=== PATIENT | female | born 1985 | race Two or more races ===

== ENCOUNTER 2023-12-22 12:59 | Inpatient (IN) | payer OTHER ==
[~2023-12-22] VITALS: Ht 165.1 cm; Wt 102.5 kg
[2023-12-22] MEDS ORDERED: LOSARTAN POTASS25 MG PO (13:52)
[2023-12-22] MEDS ORDERED: SYNTHROID50 MCG PO (13:52)
[2023-12-22] MEDS ORDERED: CLONAZEPAM1 MG PO (13:53)
[2023-12-22] MEDS ORDERED: 0.9 % SODIUM CHLORIDE 500 ML IV ONE (15:45)
[2023-12-22 16:18] LABS: HEMATOCRIT 24.3 % (36.0-45.00); MEAN CELL VOLUME 83.8 fL (80.00-100.00); PLATELET COUNT 384 K/uL (150-450); RED CELL DISTRIBUTION WIDTH 15.4 % (11.5-14.5)
[2023-12-22 16:22] LABS: MEAN CORPUSCULAR HEMOGLOBIN 27.5 pg (27.00-32.0)
[2023-12-22 16:33] LABS: PH,URINE 7.5 (5.0-8.0); URINE APPEARANCE Clear; URINE BILIRRUBIN Negative (NEGATIVE); URINE BLOOD Large; URINE COLOR Orange; URINE GLUCOSE Negative (NEGATIVE); URINE LEUKOCYTE Negative; URINE NITRATE Negative; URINE PROTEIN Negative (NEGATIVE); URINE UROBILINOGEN 0.2 E.U./dl
[2023-12-22 16:37] LABS: URINE BACTERIA 35.2 uL (0.0-1933); URINE RBC 2171.3 uL (0.0-20.8); URINE WBC 5.5 uL (0.0-23.2)
[2023-12-22 16:38] LABS: CREATININE SERUM 0.82 mg/dL (0.55-1.02); GFR 78.02; POTASSIUM 3.8 mEq/L (3.5-5.1)
[2023-12-22 16:53] LABS: INR 1.04; PARTIAL THROMBOPLASTIN TIME 26.5 SECONDS (22.0-34.0); PROTHROMBIN TIME 10.9 SECONDS (9.0-11.5)
[2023-12-22] MEDS ORDERED: LOSARTAN POTASSIUM 25 MG TABLET PO SCH (17:40)
[2023-12-22] MEDS ORDERED: ESTROGENS, CONJUGATED 25 MG in DEXTROSE 5 % IN WATER 50 ML IV SCH (17:42)
[2023-12-22] MEDS ORDERED: FUROsemide 20 MG/2 ML VIAL IV SCH (17:45)
[2023-12-23] MEDS ORDERED: LEVOTHYROXINE SODIUM 50 MCG TABLET PO SCH (06:00)
[2023-12-23 17:01] LABS: HEMOGLOBIN 10.6 g/dL (12.0-15.00); MEAN CELL VOLUME 83.9 fL (80.00-100.00); MEAN CORPUSCULAR HEMOGLOBIN 27.8 pg (27.00-32.0); MEAN CORPUSCULAR HGB CONC 33.2 g/dl (32.0-36.0); PLATELET COUNT 391 K/uL (150-450); RED BLOOD COUNT 3.81 M/uL (4.00-6.00); RED CELL DISTRIBUTION WIDTH 15.4 % (11.5-14.5)
[2023-12-24] MEDS ORDERED: MAXFE CAPLET1 EAC1 PO (13:42)
[2023-12-24] MEDS ORDERED: PROMETRIUM200 MG PO (13:43)
== END 2023-12-24 15:13 | disposition home or self-care (01) | DRG 761 ==
LOC: ER 13:00 → OB/GYN 18:48 → SEC-K 18:48 → OB/GYN 19:35
PROVIDERS: Nurse Practitioner Family; ADMIT Obstetrics & Gynecology; ATTEND Obstetrics & Gynecology
PROC: BU4CZZZ Ultrasonography of Uterus and Ovaries (ICD-10-PCS; principal; 2023-12-22)
PROC: 30233N1 Transfusion of Nonautologous Red Blood Cells into Peripheral Vein, Percutaneous Approach (ICD-10-PCS; 2023-12-23)
DX: N93.9 Abnormal uterine and vaginal bleeding, unspecified (principal); D64.9 Anemia, unspecified; Z20.822 Contact with and (suspected) exposure to COVID-19

== ENCOUNTER 2023-12-25 14:50 | Emergency (ER) | payer OTHER ==
[~2023-12-25] VITALS: Ht 165.1 cm; Wt 102.5 kg
[~2023-12-25 14:50] MED LIST: CLONAZEPAM1 MG PO; LOSARTAN POTASS25 MG PO; MAXFE CAPLET1 EAC1 PO; PROMETRIUM200 MG PO; SYNTHROID50 MCG PO
[2023-12-25 16:49] LABS: HEMATOCRIT 29.9 % (36.0-45.00); HEMOGLOBIN 9.8 g/dL (12.0-15.00); MEAN CELL VOLUME 85.1 fL (80.00-100.00); MEAN CORPUSCULAR HEMOGLOBIN 27.8 pg (27.00-32.0); MEAN CORPUSCULAR HGB CONC 32.7 g/dl (32.0-36.0); PLATELET COUNT 403 K/uL (150-450); RED BLOOD COUNT 3.51 M/uL (4.00-6.00)
[2023-12-25 17:07] LABS: URINE APPEARANCE Cloudy; URINE BILIRRUBIN Negative (NEGATIVE); URINE BLOOD Large; URINE COLOR Yellow; URINE GLUCOSE Negative (NEGATIVE); URINE LEUKOCYTE Moderate; URINE NITRATE Negative; URINE PROTEIN 30 (NEGATIVE)
[2023-12-25 17:11] LABS: URINE BACTERIA 2431.7 uL (0.0-1933); URINE EPITHELIAL CELLS 40.8 uL (0.0-38.8); URINE WBC 130.3 uL (0.0-23.2)
[2023-12-25 17:17] LABS: ALBUMIN 3.4 gm/dL (3.4-5.0); ALKALINE PHOSPHATASE 48 U/L (50-136); ALT/SGPT 25 U/L (12-78); ANION GAP 8 (10.0-20.0); AST/SGOT 9 U/L (15-37); BILIRUBIN TOTAL 0.25 mg/dL (0.3-1.2); BLOOD UREA NITROGEN 10 mg/dL (7-18); BUN CREA RATIO 12 (7.0-25.0); CALCIUM 8.9 mg/dL (8.5-10.1); CARBON DIOXIDE 29 mEq/L (21-32); CHLORIDE 106 mmol/L (98-107); CREATININE SERUM 0.81 mg/dL (0.55-1.02); GFR 79.13; GLUCOSE FASTING 104 mg/dL (65-100); INR 0.98; OSMOLALITY SERUM 277 MOSM/KG (275-295); PARTIAL THROMBOPLASTIN TIME 23.6 SECONDS (22.0-34.0); POTASSIUM 3.71 mEq/L (3.5-5.1); PROTHROMBIN TIME 10.3 SECONDS (9.0-11.5); SODIUM 139 mmol/L (136-145); TOTAL PROTEIN 7.4 gm/dL (6.4-8.2)
[2023-12-25 17:18] LABS: HCG QUANTITATIVE < 1 mUI/mL (1-3)
== END 2023-12-25 18:06 | disposition home or self-care (01) ==
LOC: ER 14:50
PROVIDERS: General Practice
DX: N93.8 Other specified abnormal uterine and vaginal bleeding (principal); J45.909 Unspecified asthma, uncomplicated; I10 Essential (primary) hypertension; E03.9 Hypothyroidism, unspecified; K50.90 Crohn's disease, unspecified, without complications; Z88.8 Allergy status to other drugs, medicaments and biological substances; Z91.013 Allergy to seafood

== ENCOUNTER 2024-01-04 08:10 | Day surgery (SDC) | payer OTHER ==
[2024-01-02 10:12] LABS: URINE APPEARANCE Turbid; URINE BILIRRUBIN Small (NEGATIVE); URINE BLOOD Moderate; URINE COLOR Red; URINE GLUCOSE Negative (NEGATIVE); URINE LEUKOCYTE Moderate; URINE NITRATE Positive; URINE UROBILINOGEN 0.2 E.U./dl
[2024-01-02 10:15] LABS: URINE BACTERIA 1242.3 uL (0.0-1933); URINE EPITHELIAL CELLS 38.1 uL (0.0-38.8); URINE WBC 444.8 uL (0.0-23.2)
[2024-01-02 10:16] LABS: HEMATOCRIT 30.2 % (36.0-45.00); MEAN CELL VOLUME 85.2 fL (80.00-100.00); MEAN CORPUSCULAR HEMOGLOBIN 28.2 pg (27.00-32.0); MEAN CORPUSCULAR HGB CONC 33.1 g/dl (32.0-36.0); PLATELET COUNT 375 K/uL (150-450); RED BLOOD COUNT 3.55 M/uL (4.00-6.00); RED CELL DISTRIBUTION WIDTH 15.9 % (11.5-14.5)
[2024-01-02 10:32] LABS: URINE PROTEIN 100 (NEGATIVE); URINE RBC > 10558.9 uL (0.0-20.8)
[2024-01-02 10:47] LABS: INR 0.99; PARTIAL THROMBOPLASTIN TIME 25.9 SECONDS (22.0-34.0); PROTHROMBIN TIME 10.4 SECONDS (9.0-11.5)
[2024-01-02 10:50] LABS: ALBUMIN 3.6 gm/dL (3.4-5.0); BILIRUBIN TOTAL 0.34 mg/dL (0.3-1.2); CALCIUM 8.8 mg/dL (8.5-10.1); CREATININE SERUM 0.91 mg/dL (0.55-1.02); GFR 69.18; GLOBULINA 3.9 G/DL (2.4-3.5); POTASSIUM 3.96 mEq/L (3.5-5.1); TOTAL PROTEIN 7.5 gm/dL (6.4-8.2); TSH 1.91 uIU/mL (0.358-3.74)
[~2024-01-04] VITALS: Ht 165.1 cm; Wt 103.4 kg
[2024-01-04] MEDS ORDERED: POVIDONE-IODINE 118 ML BOTT TOP ONE (18:57)
[2024-01-04] MEDS ORDERED: POVIDONE-IODINE 118 ML BOTT TOP SCH (20:00)
== END 2024-01-05 03:05 | disposition home or self-care (01) ==
LOC: CIR.AMB 08:10
PROVIDERS: ATTEND Student in an Organized Health Care Education/Training Program
DX: N85.00 Endometrial hyperplasia, unspecified (principal); Z91.013 Allergy to seafood; Z88.8 Allergy status to other drugs, medicaments and biological substances; I10 Essential (primary) hypertension